=== PATIENT | female | born 1960 | race Caucasian/White ===

== ENCOUNTER 2016-07-17 05:43 | Day surgery (SDC) | payer BC ==
[~2016-07-17] VITALS: Ht 170.2 cm; Wt 74.6 kg
[2016-07-17] VITALS (24 sets, daily range): BP systolic 111–155; BP diastolic 55–72; PULSE 71–128; RESP 12–16; TEMP 97.2–97.7; O2SAT 96–100; Ht 170.2 cm; Wt 74.6 kg
[~2016-07-17 05:43] MED LIST: ACET-2321 PO; AMIT10TA6 PO; AMLO5TAB2 PO; ESTR1.25 PO; FAMO20TA8 PO; HYDR-4072 PO; NITR0.4T SL; PANT40TA27 PO
--- OUTSIDE RECORDS SUMMARY | 2016-07-17 05:46 | XMS REPORT | Continuity of Care Document ---
Author Author [facility] Organization [facility] Address Unknown Phone Unavailable Allergies Medications Problems Procedures Results Encounters ACCT No. Visit Date/Time Discharge Status Pt. Type Provider Facility Loc./Unit Complaint [id number] 04/22/2016 16:42:47 04/22/2016 23: 59:59 CLS Outpatient Jaime Ndiaye [id number] 04/09/2016 10:41:57 04/09/2016 23: 59:59 CLS Outpatient Jaime Ndiaye [id number] 04/07/2016 15:09:51 04/07/2016 23: 59:59 CLS Outpatient Jaime Ndiaye [id number] 07/11/2015 08:56:39 07/11/2015 23: 59:59 CLS Outpatient Jaime Ndiaye [id number] 04/10/2015 08:57:34 04/10/2015 23: 59:59 CLS Outpatient Jaime Ndiaye [id number] 04/03/2015 08:59:49 04/03/2015 23: 59:59 CLS Outpatient Letitia Chávez [id number] 03/19/2015 17:00:18 03/19/2015 23: 59:59 CLS Outpatient Jaime Ndiaye [id number] 03/11/2015 08:07:02 03/11/2015 23: 59:59 CLS Outpatient Mathieu Fernandes [id number] 02/14/2015 15:31:10 02/14/2015 23: 59:59 CLS Outpatient Jaime Ndiaye [id number] 02/05/2015 10:21:48 02/05/2015 23: 59:59 CLS Outpatient Jaime Ndiaye [id number] 01/22/2015 09:38:51 01/22/2015 23: 59:59 CLS Outpatient Jaime Ndiaye [id number] 01/17/2013 12:17:15 01/17/2013 23: 59:59 CLS Outpatient Adry Bueno
[2016-07-17] MEDS ORDERED: SCOPOLAMINE 1.5 MG PATCH TD ONE (06:45)
[2016-07-17] MEDS ORDERED: LIDOCAINE 1% (10mg/ml) 2ml SDV INJ ONE (07:00)
[2016-07-17] MEDS ORDERED: LR 1,000 ML IV SCH ×2 (07:00→07:46)
[2016-07-17] MEDS ORDERED: SALINE FLUSH 10ml SYRINGE ONE ×2 (07:10→08:03)
[2016-07-17] MEDS ORDERED: BUPIVACAINE 0.25%/EPI 1:200,000 30ml SDV ONE (07:10)
--- NOTE | 2016-07-17 07:27 | ANESPREOP ---
Anesthesia Record Date and Time DATE: 07/17/16 TIME: 07:25 Pre-Op Diagnosis cholelithiasis Proposed Surgical Procedure ROBOTIC LAP MEKHI NPO since: mn Allergies: Coded Allergies: No Known Allergies (Unverified , 07/16/16) Ht/Wt/BMI Height: 5 ' 7.00 " Weight: 74.600 kg BMI: 25.8 kg/m2 Vital Signs Date Time Temp Pulse Resp B/P Pulse Ox O2 Delivery O2 Flow Rate FiO2 07/17/16 05:51 97.7 72 14 145/69 100 Room Air Medications Inpatient Medications Current Medications Medications (Trade) Dose Ordered Sig/Enrrique Start Time Stop Time Status Last Admin Dose Admin Lactated Ringer's (Lactated Ringers) 1,000 ml @ 30 mls/hr Q24H 07/17/16 07:00 07/17/16 06:17 30 MLS/HR Scopolamine HBr (Transderm-Scop Patch Removal) 1 removal Q3D 07/20/16 06:45 07/20/16 06:46 Acetaminophen (Tylenol) 325 Mg Tablet, 1-2 TAB PO PRN, (Reported) Last Taken: on 07/16/16 0800 Amitriptyline HCl (Amitriptyline HCl) 10 Mg Tablet, 1 TAB PO HS, (Reported) Last Taken: on 07/16/162099 Amlodipine Besylate (Amlodipine Besylate) 5 Mg Tablet, 5 MG PO DAILY, (Reported) Last Taken: on 07/17/16429 Estrogens,Conjugated (Premarin) 1.25 Mg Tablet , 1 TAB PO DAILY, (Reported) Last Taken: on 07/16/162099 Famotidine (Famotidine) 20 Mg Tablet, 1 TAB PO BID, (Reported) Last Taken: on 07/17/16429 Hydrocodone/Acetaminophen (Hydrocodon- Acetaminoph 7.5-325) 7.5-325 Tablet, 2 TAB PO Q4-6HPRN PRN for PAIN, (Reported) Last Taken: on 07/16/162099 Nitroglycerin (Nitrostat) 0.4 Mg Tablet, 1 TAB SL PRN PRN for CHEST TIGHTNESS, (Reported) Last Taken: on Unknown Date & Time Pantoprazole Sodium (Pantoprazole Sodium ) 40 Mg Tablet.dr, 1 TAB PO DAILY, (Reported) Last Taken: on 3/17/17 0430 Currently on Beta Tirso: No Medical/Surgical History Anesthesia PMH: Reports: *Angina (THOUGHT WAS HAVING HEART ATTACK A WEEK AGO - WAS RELATED TO GALLBLADDER), *Hypertension, Reflux, Denies: *Diabetes, Anesthesia Reactions (NO AIRWAY ISSUES N&V), Arthritis, Cancer, Clotting Problems, Glaucoma, Malignant Hyperthermia, Renal Disease, Sleep Apnea, Thyroid Disease Smoking Status: Never smoker Has pt. smoked today?: No Use Chewing Tobacco?: No Second Hand Exposure: No Substance Use Type: does not use Alcohol Intake: none HX of Last Menstrual Period: 1992 Past Surgical History Orthopedic Surgeries: Abdominal Surgeries: Yes - APPY Genitourinary Surgeries: Yes - CYSTOSCOPY Cardiac Surgeries: Endocrine Surgeries: Reproductive Surgeries: Yes - HYST Neurological Surgeries: Ear Surgeries: Nose Surgeries: Throat Surgeries: Yes - TONSILLECTOMY Other Surgeries: Anesthesia Adverse Reactions: FOUND none Family Hx of Anesthesia Advers: none Pertinent Findings EKG Rhythm: Sinus Rhythm Physical Exam Respiratory: Bilat breath sounds equal, Lungs clear Cardiovascular: FOUND Regular rate, rhythm, FOUND No murmur Airway Assessment Mallampati Score: II TMD: 3 Fingerbreadths Neck Extension: Fair Teeth: Other (overbite ) ASA: 2 Plan Anesthesia Plan: GETA Discussion Discussed risks/options/alternatives of anesthesia and questions answered. Patient consents. Nursing pain assessment noted. Attestation Statement Prior to the delivery of any anesthetic medication, I examined the patient, developed the plan, obtained the patient's consent and discussed the risk and benefits of the procedure with the patient/guardian. DAVE SANCHEZ CRNA Jul 17, 2016 07:27
[2016-07-17] MEDS ORDERED: PROPOFOL 200mg 20 ML IV ONE (07:32)
[2016-07-17] MEDS ORDERED: ROCURONIUM 50mg/5ml INJECTION IV ONE (07:32)
[2016-07-17] MEDS ORDERED: LIDOCAINE 2% (20mg/ml) 5ml PF SDV ONE (07:32)
[2016-07-17] MEDS ORDERED: FENTANYL 100mcg/2ml INJECTION ONE (07:33)
[2016-07-17] MEDS ORDERED: KETAMINE 500mg/10ml INJECTION ONE (07:33)
[2016-07-17] MEDS ORDERED: MIDAZOLAM 2mg/2ml INJECTION ONE (07:33)
[2016-07-17] MEDS ORDERED: LIDOCAINE JELLY 2% 30ml TUBE ONE (07:38)
[2016-07-17] MEDS ORDERED: DEXAMETHASONE 4mg/ml - 1ml INJECTION ONE (07:49)
[2016-07-17] MEDS ORDERED: METOCLOPRAMIDE 10mg/2ml INJECTION ONE (07:49)
[2016-07-17] MEDS ORDERED: ONDANSETRON 4mg/2ml INJECTION ONE ×2 (07:49→08:44)
[2016-07-17] MEDS ORDERED: HYDROCODONE/APAP 5 mg/325 mg TABLET PO PRN (08:00)
[2016-07-17] MEDS ORDERED: METOCLOPRAMIDE 10mg/2ml INJECTION IV PRN (08:00)
[2016-07-17] MEDS ORDERED: ERTAPENEM 1 G in NORMAL SALINE 100 ML IV ONE (08:00)
[2016-07-17] MEDS ORDERED: ONDANSETRON 4mg/2ml INJECTION IV PRN (08:00)
[2016-07-17] MEDS ORDERED: MORPHINE SULFATE 4 MG SYRINGE IV PRN (08:00)
[2016-07-17] MEDS ORDERED: KETOROLAC 30mg/ml INJECTION IV PRN (08:00)
[2016-07-17] MEDS ORDERED: EPHEDRINE SULFATE 50mg/ml INJECTION ONE (08:03)
[2016-07-17] MEDS ORDERED: ATROPINE 0.4 MG/ML VIAL ONE (08:05)
[2016-07-17] MEDS ORDERED: KETOROLAC 30mg/ml INJECTION ONE (08:44)
[2016-07-17] MEDS ORDERED: PROMETHAZINE 25 MG INJECTION IV ONE (08:45)
[2016-07-17] MEDS ORDERED: HYDROMORPHONE 2mg/ml INJECTION IV PRN (08:45)
[2016-07-17] MEDS ORDERED: FAMOTIDINE 20 MG TABLET PO SCH (09:00)
[2016-07-17] MEDS ORDERED: AMLODIPINE 5 MG TABLET PO SCH (09:00)
[2016-07-17] MEDS ORDERED: ESTROGENS,CONJUGATED 0.625 MG TABLET PO SCH (09:00)
--- NOTE | 2016-07-17 09:00 | NUR ---
SCHEDULED AM MEDS SCHEDULED PREMARIN, PEPCID AND NORVASC NOT ADMINISTERED YET DUE TO PT IN OR/PACU. PT RETURNED TO FLOOR AT 0958 AND REPORTED NAUSEA. PT HAD ALREADY RECEIVED ANTIEMETICS IN PACU AND OR. PT HAS NOT TAKEN IN ANYTHING PO AND CURRENTLY REFUSING SCHEDULED MEDICATIONS. THIS RN AND PT DISCUSSED THAT SHE WOULD TAKE THEM LATER ON IN THE DAY WHEN NAUSEA SUBSIDES OR LESSENS. WILL CONTINUE TO MONITOR.
--- NOTE | 2016-07-17 09:02 | GSPOSTPN ---
Procedure Procedure Date: Jul 17, 2016 Surgeon: Beau Assisting Surgeon: Lloyd Stahl Anesthesia: Local, GETA ASA: 2 Procedure Robotic assisted laparoscopic cholecystectomy with firefly imaging GS Diagnosis Postop Diagnosis Symptomatic cholelithiasis Complications Complications Estimated Blood Loss See Anesthesia Record. Vital Signs See Anesthesia and PACU record. PAT STAHL APRN, LAS Jul 17, 2016 09:02
[2016-07-17] MEDS ORDERED: IBUP-2067 PO (09:12)
[2016-07-17] MEDS ORDERED: HYDR-4246 PO (09:12)
[2016-07-17] MEDS ORDERED: POLY17PO6 PO (09:12)
--- NOTE | 2016-07-17 09:58 | NUR ---
ADMIT PT ADMITTED TO ROOM 123 AT THIS TIME VIA CART. PT TRANSFERRED SELF FROM CART TO BED. VITAL SIGNS STABLE ON ROOM AIR. DAUGHTER PRESENT IN ROOM. BED ALARM ON. WILL CONTINUE TO MONITOR.
--- NOTE | 2016-07-17 10:30 | ANESPO ---
Post-Op Note Date 07/17/16 Time: 09:35 Status Pt Participated in Evaluation: Pt participated in person Vital Signs Date Time Temp Pulse Resp B/P Pulse Ox O2 Delivery O2 Flow Rate FiO2 07/17/16 09:55 97.6 07/17/16 09:55 96 16 114/55 100 Room Air 07/17/16 09:20 6.00 Respiratory Function: Airway patent Mental Status: Alert/oriented Pain Level Intensity: 4 Hydration: IV infusing Complications during Recovery None apparent Follow-Up Instructions Instructions Per Surgeon DAVE SANCHEZ CRNA Jul 17, 2016 10:30
--- NOTE | 2016-07-17 11:45 | OPNOTEF ---
DATE OF SERVICE 07/17/2016 SURGEON Alexis Yanez MD PREOPERATIVE DIAGNOSIS Symptomatic cholelithiasis. POSTOPERATIVE DIAGNOSIS Symptomatic cholelithiasis. PROCEDURE Robotic assisted laparoscopic cholecystectomy with use of Firefly biliary imaging. ANESTHESIA General endotracheal EBL AND FLUIDS Please refer to chart. BRIEF HISTORY/INDICATIONS Mrs. Santos is a 56-year-old female who has had somewhat of an atypical presentation in the fact that over a week ago she began to experience a component of chest discomfort. Described the chest pain as a "rubber band" involving the inframammary/lower chest region. The patient was admitted to [facility] and underwent appropriate evaluation from a cardiac standpoint. Cardiac etiology for her chest pain was ruled out. It was felt that perhaps the patient was suffering from intermittent esophageal spasms. The patient was subsequently sent home where she continued to have ongoing discomfort. Upon examination the patient was found to be actually quite tender within her right subcostal region. To further evaluate the potential etiology for her ongoing pain, we did obtain a gallbladder sonogram that revealed cholelithiasis. Sonogram however did not reveal evidence for acute cholecystitis in the fact that there was not pericholecystic fluid or gallbladder wall thickening. Preoperatively I did speak with the patient this morning and informed her of her sonographic results. I informed the patient that I could not guarantee that her pain was indeed the result of her gallbladder but that it was my clinical intuition that her abdominal pain and lower chest discomfort was indeed a result of her gallstones. It was therefore my recommendation to the patient this morning that she undergo surgical intervention/cholecystectomy. I did discuss preoperatively with the patient what a robotic assisted laparoscopic cholecystectomy entailed and its associated risks, which included but were not exclusive of, bleeding, infection, potential conversion to open procedure, as well as potential injury to adjacent structures especially the common bile duct. The patient understood and wished to proceed. FINDINGS Upon laparoscopy, the patient was found to have a distended gallbladder. The surrounding omentum, duodenum and stomach was somewhat adherent to the gallbladder indicative of prior inflammation. There was however no evidence for significant pericholecystic fluid. As stated above, there was a component of some gallbladder wall thickening. The small bowel, colon, peritoneal surfaces which were visualized, were within normal limits. Liver edge was smooth and without nodularities. Standard cholecystectomy was able be completed without incident. DESCRIPTION OF PROCEDURE After informed consent was obtained, patient was brought to the operative suite, placed in on the table in a supine fashion. The abdomen was then prepped and draped in sterile fashion. Formal time-out was then completed. 0.25% Marcaine with epinephrine was injected just beneath the level of the umbilicus. A 2 cm curved incision was then made through the area of analgesia. Dissection was carried down to the deep subcuticular tissues and underlying fascia. Fascia was then grasped with two Keven clamps and retracted anteriorly. A 1 cm incision was then made between the two Keven clamps. Hemostat was then introduced in the fascial incision and gently spread. A U-stitch was then placed with 0 Vicryl. A 12 mm port was then placed through the fascial opening into the peritoneal cavity. Pneumoperitoneum was established to a patient pressure of 15 mmHg utilizing carbon dioxide. Next two next additional 8 mm ports were then placed within the left upper quadrant and right lower quadrant under direct visualization. The 5 mm assist port was also placed along the right lateral abdominal wall. Each port site again was preinjected with 0.25% Marcaine with epinephrine and placed under direct visualization. Abdominal cavity explored via the laparoscope. Findings were as noted above. The patient was placed in reverse Trendelenburg position and rotated slightly towards her left. Robot was then docked overlying the patient's right shoulder at a 45 degree angle. Fundus of the gallbladder was then grasped and retracted in cephalad fashion. I had my oncology physician assistant through the 5 mm port then grasp the gallbladder and continue to retract it in a cephalad fashion. There was some omentum as well as a portion of the stomach and duodenum that was adherent to the gallbladder. These adhesions were taken down under direct visualization bluntly as well as with the use of electrocautery. At no point time was electrocautery performed adjacent to a hollow viscus such as the transverse colon, duodenum or stomach. Once the adhesions had been swept away from the gallbladder, one could now see the infundibular portion of the gallbladder. Infundibular portion of the gallbladder was grasped and retracted in a lateral and slightly caudad fashion. One could ascertain that there was a fairly good stone that appeared to be somewhat lodged within the midportion of the gallbladder. Stone was able to be advanced back towards the fundal portion of the gallbladder. Dissection was began high upon the infundibulum of the gallbladder and dissection was continued until the critical view of safety had been obtained and the only remaining structures coming forth from the infundibulum of the gallbladder were that of the cystic duct and cystic artery. Posterior aspect of the infundibulum of the gallbladder at this point in time had been completely dissected away from the liver bed fossa. Firefly biliary imaging was utilized during the process of dissection which did aid in the identification of the cystic duct. Cystic duct did fluoresce quite well. One could see the cystic duct as it coursed down towards the hepatoduodenal ligament/common bile duct. Once the critical view of safety had been obtained, a single Hem-o-Annamaria clip was then placed upon the cystic artery upon the midportion of the infundibulum of the gallbladder. Additional Hem-o-Annamaria clip was then just placed proximal. Additional Hem-o-Annamaria clip was then placed upon the cystic duct adjacent to the infundibulum of the gallbladder. Additional Hem-o-Annamaria clip was then just placed proximally. Cystic artery and cystic duct were then divided between the two Hem-o-Annamaria clips. Gallbladder was then dissected off the liver bed fossa. Robot was undocked. Gallbladder was then placed within a laparoscopic retrieval bag and removed from the infraumbilical port site. Port was then replaced and irrigation was performed and all irrigant was suctioned till clear. Gallbladder fossa was hemostatic in nature. Previously placed Hem-o-Annamaria clips were visualized and remained to be intact. Ports were removed under direct visualization. Previously placed U-stitch was then secured imbricating the fascia at the infraumbilical port site. Fascia was dilated to some extent to remove the gallbladder as a result of having a larger stone within the gallbladder itself. Additional [id number] suture was also utilized to completely close the fascia once it had been further dilated for removal of the gallbladder. Next attention was directed towards skin closure. Each skin incision was closed in a subcuticular fashion with 4-0 Monocryl. Dermabond was placed overlying the incisions. Patient is in the process of awakening from her anesthetic and will be sent back to the recovery room once deemed in stable condition. JOSHUA
--- NOTE | 2016-07-17 18:30 | NUR ---
DISCHARGE PT DISCHARGED TO HOME AT THIS TIME IN THE COMPANY OF AN ADULT. PT TRANSPORTED TO THE ER ENTRANCE BY WHEELCHAIR AND SUPER VISION OF STAFF. DISCHARGE INSTRUCTIONS INCLUDING DIET, ACTIVITY, MEDICATIONS, FOLLOW UP APPOINTMENT AND REPORTABLE S/S GIVEN AND REVIEWED WITH PATIENT. PT VERBALIZED UNDERSTANDING OF THESE INSTRUCTIONS AND HAD NO FURTHER QUESTIONS. IVL DISCONTINUED. ARMBAND REMOVED.
[2016-07-17] MEDS ORDERED: AMITRIPTYLINE 10 MG TABLET PO SCH (22:00)
[2016-07-18] MEDS ORDERED: IBUPROFEN 600 MG TABLET PO PRN (08:00)
[2016-07-20] MEDS ORDERED: SCOPOLAMINE PATCH REMOVAL TD SCH (06:45)
== END 2016-07-17 18:30 | disposition home or self-care (01) ==
LOC: SCU 05:43 → SRG 05:44 → SCU 18:30
PROVIDERS: ATTEND Surgery
DX: K80.10 Calculus of gallbladder with chronic cholecystitis without obstruction (principal); K82.8 Other specified diseases of gallbladder; I10 Essential (primary) hypertension; Z79.899 Other long term (current) drug therapy
CPT/HCPCS: 47562; J0461; J1100; J1170; J1335; J1885; J2250; J2405; J2550; J2704; J2765; J3010; J7030; J7050; J7120; S0020; S2900